=== PATIENT | female | born 1965 | race Hispanic/Latino ===

== ENCOUNTER → 2017-12-22 | Outpatient (CLI) | payer OTHER ==
[~2017-12-22] MED LIST: ESOM20SU PO
== END | disposition home or self-care (01) ==
LOC: RAH 11:29
PROVIDERS: ATTEND Obstetrics & Gynecology
DX: Z12.31 Encounter for screening mammogram for malignant neoplasm of breast (principal)
CPT/HCPCS: 77067

== ENCOUNTER → 2018-06-08 | Outpatient (CLI) | payer OTHER | END | disposition home or self-care (01) | LOC: RAH 05-29 10:40 | PROVIDERS: ATTEND Physical Medicine & Rehabilitation | DX: M75.111 Incomplete rotator cuff tear or rupture of right shoulder, not specified as traumatic (principal); M19.011 Primary osteoarthritis, right shoulder | CPT/HCPCS: 73221 ==

== ENCOUNTER → 2018-06-29 | Outpatient (CLI) | payer OTHER ==
[2018-06-29 08:46] LABS: HEMOGLOBIN A1C 6.6 % (4.0-6.0)
[2018-06-29 08:50] LABS: ALBUMIN 3.6 g/dL (3.5-5.0); CREATININE 0.8 mg/dL (0.5-1.5); POTASSIUM 4.2 mmol/L (3.5-5.1); TOTAL PROTEIN, SERUM 7.4 g/dL (6.0-8.3)
== END | disposition home or self-care (01) ==
LOC: RAH 08:06
PROVIDERS: ATTEND Physical Medicine & Rehabilitation
DX: M50.10 Cervical disc disorder with radiculopathy, unspecified cervical region (principal); M48.02 Spinal stenosis, cervical region; M25.78 Osteophyte, vertebrae; M47.22 Other spondylosis with radiculopathy, cervical region; R53.83 Other fatigue
CPT/HCPCS: 36415; 72141; 80053; 80061; 82670; 83001; 83002; 83036; 84144; 84402; 84403

== ENCOUNTER → 2019-01-02 | Outpatient (CLI) | payer OTHER ==
[2019-01-02 09:16] LABS: THYROID STIMULATING HORMONE 1.36 uIU/mL (0.36-3.74)
== END | disposition home or self-care (01) ==
LOC: LAB 01-01 14:37
PROVIDERS: ATTEND Obstetrics & Gynecology
DX: Z13.6 Encounter for screening for cardiovascular disorders (principal); Z13.29 Encounter for screening for other suspected endocrine disorder; N95.1 Menopausal and female climacteric states
CPT/HCPCS: 36415; 80061; 82670; 83001; 84402; 84403; 84439; 84443; 84481

== ENCOUNTER → 2019-11-01 | Outpatient (CLI) | payer OTHER ==
[2019-11-01 09:02] LABS: THYROID STIMULATING HORMONE 1.25 uIU/mL (0.36-3.74)
== END | disposition home or self-care (01) ==
LOC: LAB 07:16
PROVIDERS: ATTEND Obstetrics & Gynecology
DX: E28.310 Symptomatic premature menopause (principal); Z79.890 Hormone replacement therapy
CPT/HCPCS: 36415; 80061; 82670; 83001; 84402; 84403; 84439; 84443; 84481

== ENCOUNTER → 2019-12-06 | Outpatient (CLI) | payer OTHER | END | disposition home or self-care (01) | LOC: RAH 10:01 | PROVIDERS: ATTEND Obstetrics & Gynecology | DX: Z12.31 Encounter for screening mammogram for malignant neoplasm of breast (principal) | CPT/HCPCS: 77067 ==

== ENCOUNTER → 2021-07-07 | Outpatient (CLI) | payer BC | END | disposition home or self-care (01) | LOC: RAH 11:19 | PROVIDERS: ATTEND Dermatology | DX: D17.9 Benign lipomatous neoplasm, unspecified (principal) | CPT/HCPCS: 76536 ==

== ENCOUNTER 2022-08-15 05:50 | Day surgery (SDC) | payer BC ==
[2022-08-11 13:26] LABS: BASOPHILS % (AUTO) 0.8 % (0.0-5.0); EOSINOPHILS % (AUTO) 2.8 % (0.0-8.0); LYMPHOCYTES % (AUTO) 32.3 % (21.0-51.0); MEAN CORPUSCULAR HGB CONC 33.5 g/dL (32.0-36.0); MEAN CORPUSCULAR VOLUME 86.5 fL (79-99); NEUTROPHILS % (AUTO) 58.8 % (40.0-77.0); PLATELET COUNT (AUTO) 201 K/uL (130-400); RED BLOOD CELL COUNT(AUTO) 5.55 MIL/uL (4.00-5.50); RED CELL DISTRIBUTION WIDTH 12.7 % (11.0-15.5); WHITE BLOOD COUNT (AUTO) 6.4 K/uL (4.8-10.8)
[2022-08-11 13:28] VITALS: BP 150/75
[2022-08-15] VITALS (15 sets, daily range): BP systolic 99–165; BP diastolic 55–87
[~2022-08-15] VITALS: Ht 157.5 cm; Wt 98.2 kg
[~2022-08-15 05:50] MED LIST changes: -ESOM20SU PO; +PROG100C11 PO
[2022-08-15] MEDS ORDERED: LACTATED RINGERS 1000ML 1,000 ML IV ONE (06:27)
[2022-08-15] MEDS ORDERED: CALDOLOR 800MG+NS 250ML 250 ML IV SCH (06:30)
[2022-08-15] MEDS ORDERED: CEFAZOLIN SODIUM 1 GM VIAL IVPB SCH (06:30)
[2022-08-15] MEDS ORDERED: CEFAZOLIN SODIUM 2 GM VIAL IVPB ONE (07:20)
[2022-08-15] MEDS ORDERED: FENTANYL CITRATE PF 50 MCG/1 ML 2ML VIAL ONE (07:32)
[2022-08-15] MEDS ORDERED: MIDAZOLAM HCL 1 MG/ML 2ML VIAL ONE (07:32)
[2022-08-15] MEDS ORDERED: PROPOFOL 10 MG/ML 20ML VIAL IV ONE (07:32)
[2022-08-15] MEDS ORDERED: DEXAMETHASONE SOD PHOSPHATE 10MG/ML 1ML VIAL ONE (07:39)
[2022-08-15] MEDS ORDERED: ONDANSETRON 4MG INJ ONE (07:40)
== END 2022-08-15 09:26 | disposition home or self-care (01) ==
LOC: DAH 05:50
PROVIDERS: ATTEND Obstetrics & Gynecology
DX: N95.0 Postmenopausal bleeding (principal); Z20.822 Contact with and (suspected) exposure to COVID-19; N93.9 Abnormal uterine and vaginal bleeding, unspecified; N84.0 Polyp of corpus uteri; Z88.6 Allergy status to analgesic agent; Z72.89 Other problems related to lifestyle; Z79.899 Other long term (current) drug therapy
CPT/HCPCS: 85025; 86850 ×2; 86900 ×2; 86901 ×2; 87426; 36415 ×2; 58563; 81025; A6260; A4663; A4351; A4355; J7120; J3010; J0690 ×2; J1100; J2250; J2704; J2405; J1741; A4215; A4223; A4222; A4221; J7030; A4600; A4510